=== PATIENT | male | born 1980 | race Caucasian/White ===

== ENCOUNTER 2017-05-20 14:26 | Emergency (ER) | payer BC ==
--- NOTE | 2017-05-20 15:12 | EDM.PDOC ---
ED HPI GENERAL MEDICAL PROBLEM - General Chief Complaint: ENT Problem Stated Complaint: OBJECT IN THROAT Time Seen by Provider: 05/20/17 14:45 Source of Information: Reports: Patient History Limitations: Reports: No Limitations - History of Present Illness INITIAL COMMENTS - FREE TEXT/NARRATIVE: c/o ingestion f.b. 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 said that it is old and he is not planning on screening his stool - Related Data Allergies Allergy/AdvReac Type Severity Reaction Status Date / Time No Known Allergies Allergy Verified 05/20/17 14:59 Home Meds: Home Meds Lisinopril [Lisinopril] 10 mg PO DAILY 05/20/17 [History] Social & Family History - Tobacco Use Smoking Status *Q: Never Smoker - Alcohol Use Days Per Week of Alcohol Use: 3 Number of Drinks Per Day: 3 Total Drinks Per Week: 9 - Recreational Drug Use Recreational Drug Use: No ED ROS ENT - Review of Systems Review Of Systems: See Below Constitutional: Reports: No Symptoms HEENT: Reports: Other (dysphagia) Respiratory: Reports: No Symptoms Endocrine: Reports: No Symptoms GI/Abdominal: Reports: No Symptoms : Reports: No Symptoms Musculoskeletal: Reports: No Symptoms Skin: Reports: No Symptoms Neurological: Reports: No Symptoms Psychiatric: Reports: No Symptoms Hematologic/Lymphatic: Reports: No Symptoms Immunologic: Reports: No Symptoms ED EXAM, ENT - Physical Exam Exam: See Below Exam Limited By: No Limitations General Appearance: Alert, WD/WN, No Apparent Distress Ears: Normal External Exam Nose: Normal Inspection, Normal Mucousa, No Blood Mouth/Throat: Normal Inspection, Normal Gums, Normal Lips, Normal Oropharynx, Normal Teeth, Other (no red, no swell) Head: Atraumatic, Normocephalic Neck: Normal Inspection, Supple, Non-Tender, Full Range of Motion Respiratory/Chest: No Respiratory Distress, Lungs Clear, Normal Breath Sounds, No Accessory Muscle Use, Chest Non-Tender Cardiovascular: Regular Rate, Rhythm, No Edema, No Gallop, No JVD, No Murmur, No Rub GI/Abdominal: Soft, Non-Tender, No Distention Course - Vital Signs Last Recorded V/S: Last Vital Signs Temp Pulse 85 05/20/17 15:00 Resp 18 05/20/17 15:00 BP 123/88 05/20/17 15:00 Pulse Ox 100 05/20/17 15:00 - Orders/Labs/Meds Orders: Active Orders 24 hr Category Date Time Status Neck Soft Tissue [CR] Stat Exams 05/20/17 14:50 Taken Departure - Departure Time of Disposition: 15:11 Disposition: Home, Self-Care 01 Condition: Good Clinical Impression: Swallowed foreign body - Discharge Information Instructions: Swallowed Foreign Body, Adult Referrals: PCP,Not In Area [Primary Care Provider] - Additional Instructions: May use liquid antacid 15 cc every 2-4 hours as needed for discomfort. May screen your stool for the next 2-3 days if desired to retrieve the partial. Continue regular diet. See your physician or return to ED if you should develop additional symptoms. - My Orders Last 24 Hours: My Active Orders 05/20/17 14:50 Neck Soft Tissue [CR] Stat - Assessment/Plan Last 24 Hours: My Active Orders 05/20/17 14:50 Neck Soft Tissue [CR] Stat
--- NOTE | 2017-05-20 15:32 | CR ---
INDICATION: Swallowed part of his partial - foreign object. NECK, SOFT TISSUE: Frontal and lateral views of the neck were obtained and revealed no radiopaque foreign bodies. The airway appears to be patent. Prevertebral space appeared normal. Spine appeared unremarkable. IMPRESSION: No radiopaque foreign body - report was called to [facility] in ER for Dr. Calderón at 1445 hours, 05/20/2017. ARTURO
== END 2017-05-20 15:36 | disposition home or self-care (01) ==
LOC: FB.ED 14:26
DX: T18.9XXA Foreign body of alimentary tract, part unspecified, initial encounter (principal); Z79.899 Other long term (current) drug therapy
CPT/HCPCS: 70360; 99283